=== PATIENT | female | born 1935 | race Caucasian/White ===

== ENCOUNTER 2016-05-29 19:04 | Observation (INO) | payer MEDICARE, BC ==
[~2016-05-29] VITALS: Ht 157.5 cm; Wt 50.0 kg
[2016-05-29 19:19] VITALS: BP 213/114; PULSE 96; RESP 18; TEMP 97.9; O2SAT 100
[2016-05-29] MEDS ORDERED: CARV6.252 PO (19:25)
[2016-05-29] MEDS ORDERED: FURO40TA PO (19:25)
[2016-05-29] MEDS ORDERED: DIGO0.12 PO (19:25)
[2016-05-29] MEDS ORDERED: APIX2.5T PO (19:25)
[2016-05-29] MEDS ORDERED: LISI-519 PO (19:25)
[2016-05-29 19:30] VITALS: RESP 16; O2SAT 100
[2016-05-29 19:49] LABS: AUTOMATED NEUTROPHIL # 5.3 TH/MM3 (1.8-7.7); BASOPHIL % 0.5 % (0.0-2.0); EOSINOPHIL # 0.1 TH/MM3 (0-0.4); EOSINOPHIL % 1.3 % (0.0-4.0); HEMATOCRIT 45.6 % (35.0-46.0); HEMO FLAGS DIFF FINAL; LYMPH % 21.4 % (9.0-44.0); LYMPHOCYTE # 1.6 TH/MM3 (1.0-4.8); MEAN CELL VOLUME 92.3 FL (80.0-100.0); MEAN CORPUSCULAR HEMOGLOBIN 31.3 PG (27.0-34.0); MEAN CORPUSCULAR HGB CONC 33.9 % (32.0-36.0); MONO % 6.7 % (0.0-8.0); NEUT % 70.1 % (16.0-70.0); PLATELET COUNT 118 TH/MM3 (150-450); RED BLOOD COUNT 4.94 MIL/MM3 (4.00-5.30); RED CELL DISTRIBUTION WIDTH 15.4 % (11.6-17.2); WHITE BLOOD COUNT 7.6 TH/MM3 (4.0-11.0)
--- NOTE | 2016-05-29 19:52 | PD ---
HPI Chief Complaint: Chest Pain Time Seen by Provider: 19:18 Travel History International Travel<30 days: No Contact w/Intl Traveler<30days: No Traveled to known affect area: No History of Present Illness HPI Patient is an 81-year-old female who comes in complaining of shortness of breath and some throat discomfort. She says that this morning she woke up and felt some congestion in her throat. She says that while she was organizing some clothing she noticed that she has been feeling very tired today. She says she has to walk up stairs to get to her bedroom and says that this made her feel very winded which is not typical for her. She has not had any pain. She denies any chest pain. She says her granddaughter was diagnosed with strep throat today and she was worried that she might of caught it. She is also concerned about her atrial fibrillation. She has not had any fever or chills. She denies any nausea or vomiting. She has been traveling across the country over the past few months visiting various relatives. [facility] Past Medical History Atrial Fibrillation: Yes Hypertension: Yes Tetanus Vaccination: Unknown Influenza Vaccination: Yes ?: Not Social History Alcohol Use: No Tobacco Use: No Substance Use: No Allergies-Medications (Allergen,Severity, Reaction): Coded Allergies: Codeine (Verified Allergy, Severe, 05/29/16) Darvon (Verified Allergy, Severe, 05/29/16) Reported Meds & Prescriptions Reported Meds & Active Scripts Active Reported Eliquis (Apixaban) 2.5 Mg Tab 2.5 Mg PO BID Carvedilol 6.25 Mg Tab 6.25 Mg PO BID Furosemide 40 Mg Tab 40 Mg PO DAILY Digoxin 0.125 Mg Tab 0.125 Mg PO DAILY Lisinopril 5 Mg Tab 5 Mg PO DAILY Review of Systems Except as stated in HPI: all other systems reviewed are Neg General / Constitutional: No: Fever, Chills HENT: Positive: Congestion, No: Headaches, Lightheadedness Cardiovascular: No: Chest Pain or Discomfort Respiratory: Positive: Shortness of Breath, No: Cough Gastrointestinal: No: Nausea, Vomiting Genitourinary: No: Urgency, Dysuria Skin: No Rash, No Itching Neurologic: Positive: Weakness Physical Exam Narrative GENERAL: Awake and alert, in no acute distress. SKIN: Focused skin assessment warm/dry. HEAD: Atraumatic. Normocephalic. EYES: Pupils equal and round. No scleral icterus. ENT: No nasal bleeding or discharge. Mucous membranes pink and moist. NECK: Trachea midline. No JVD. CARDIOVASCULAR: Tachycardia, irregular rhythm. No murmur appreciated. RESPIRATORY: No accessory muscle use. Clear to auscultation. Breath sounds equal bilaterally. GASTROINTESTINAL: Abdomen soft, non-tender, nondistended. MUSCULOSKELETAL: No obvious deformities. No clubbing. No cyanosis. No edema. No calf tenderness. NEUROLOGICAL: Awake and alert. No obvious cranial nerve deficits. Motor grossly within normal limits. Normal speech. PSYCHIATRIC: Appropriate mood and affect; insight and judgment normal. Data Data Last Documented VS Vital Signs Date Time Temp Pulse Resp B/P Pulse Ox O2 Delivery O2 Flow Rate FiO2 05/29/16 19:30 16 100 Nasal Cannula 2 05/29/16 19:30 100 05/29/16 19:19 97.9 213/114 Orders Complete Blood Count With Diff (05/29/16 19:18) Comprehensive Metabolic Panel (05/29/16 19:18) B-Type Natriuretic Peptide (05/29/16 19:18) Act Partial Throm Time (Ptt) (05/29/16 19:18) Prothrombin Time / Inr (Pt) (05/29/16 19:18) Ckmb (Isoenzyme) Profile (05/29/16 19:18) Troponin I (05/29/16 19:18) Urinalysis - C+S If Indicated (05/29/16 19:18) Ua Includes Microscopic (05/29/16 19:18) Iv Access Insert/Monitor (05/29/16 19:18) Ecg Monitoring (05/29/16 19:18) Oximetry (05/29/16 19:18) Oxygen Administration (05/29/16 19:18) Chest, Pa & Lat (05/29/16 19:18) Ct Pulmonary Angiogram (05/29/16 19:18) Thyroid Stimulating Hormone (05/29/16 19:18) Lisinopril (Prinivil) (05/29/16 20:00) Carvedilol (Coreg) (05/29/16 20:00) Sodium Chlorid 0.9% 500 Ml Inj (Ns 500 M (05/29/16 20:00) Iohexol 350 Inj (Omnipaque 350 Inj) (05/29/16 20:49) Furosemide Inj (Lasix Inj) (05/29/16 21:15) Electrocardiogram (05/29/16 19:16) Admit Order (Ed Use Only) (05/29/16 ) Labs Laboratory Tests Test 05/29/16 05/29/16 19:25 20:20 White Blood Count 7.6 TH/MM3 Red Blood Count 4.94 MIL/MM3 Hemoglobin 15.4 GM/DL Hematocrit 45.6 % Mean Corpuscular Volume 92.3 FL Mean Corpuscular Hemoglobin 31.3 PG Mean Corpuscular Hemoglobin 33.9 % Concent Red Cell Distribution Width 15.4 % Platelet Count 118 TH/MM3 Mean Platelet Volume 12.1 FL Neutrophils (%) (Auto) 70.1 % Lymphocytes (%) (Auto) 21.4 % Monocytes (%) (Auto) 6.7 % Eosinophils (%) (Auto) 1.3 % Basophils (%) (Auto) 0.5 % Neutrophils # (Auto) 5.3 TH/MM3 Lymphocytes # (Auto) 1.6 TH/MM3 Monocytes # (Auto) 0.5 TH/MM3 Eosinophils # (Auto) 0.1 TH/MM3 Basophils # (Auto) 0.0 TH/MM3 CBC Comment DIFF FINAL Differential Comment Prothrombin Time 11.3 SEC Prothromb Time International 1.0 RATIO Ratio Activated Partial 28.6 SEC Thromboplast Time Sodium Level 137 MEQ/L Potassium Level 3.9 MEQ/L Chloride Level 102 MEQ/L Carbon Dioxide Level 25.2 MEQ/L Anion Gap 10 MEQ/L Blood Urea Nitrogen 30 MG/DL Creatinine 1.02 MG/DL Estimat Glomerular Filtration 52 ML/MIN Rate Random Glucose 113 MG/DL Calcium Level 9.3 MG/DL Total Bilirubin 0.9 MG/DL Aspartate Amino Transf 31 U/L (AST/SGOT) Alanine Aminotransferase 27 U/L (ALT/SGPT) Alkaline Phosphatase 125 U/L Total Creatine Kinase 63 U/L Troponin I LESS THAN 0.02 NG/ML B-Type Natriuretic Peptide 461 PG/ML Total Protein 7.6 GM/DL Albumin 3.8 GM/DL Thyroid Stimulating Hormone 3.630 uIU/ML 3rd Gen Urine Color YELLOW Urine Turbidity CLEAR Urine pH 6.5 Urine Specific [place] 1.008 Urine Protein TRACE mg/dL Urine Glucose (UA) NEG mg/dL Urine Ketones TRACE mg/dL Urine Occult Blood NEG Urine Nitrite NEG Urine Bilirubin NEG Urine Urobilinogen LESS THAN 2.0 MG/DL Urine Leukocyte Esterase NEG Urine RBC 1 /hpf Urine WBC 1 /hpf Urine Mucus FEW /lpf Microscopic Urinalysis Comment CULT NOT INDICATED MDM Medical Decision Making Medical Screen Exam Complete: Yes Emergency Medical Condition: Yes Interpretation(s) ECG shows atrial fibrillation with a rate of 102 Differential Diagnosis ACS versus CHF versus PE Narrative Course Patient is an 81-year-old female comes in complaining of shortness of breath and a funny sensation in her neck. Exam shows an irregular heart rate that is tachycardic. ECG shows a rate of 102, she is in atrial fibrillation. IV established, patient connected to the panel monitor, labs sent. Labs significant for a BNP of 416. CTA of the chest is negative for PE. 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 Patient informed of these results. I spoke with Dr. Medina of thoracic surgery who says there is nothing to do at this time , she needs to follow-up with her doctor in 6 months to have it checked. Patient informed of the CT results and advised that she needs to have this followed. Advised of warning signs and to return to the hospital immediately if she experiences any of the symptoms. Patient given Lasix. Placed in observation for management of ACS versus CHF exacerbation. She was given 20 mg of Cardizem by EMS prior to arrival. Her pulse rate has been maintained in the high 90s, low 100s to this has not been repeated. She was given her home medications of lisinopril and carvedilol. Diagnosis Primary Impression: CHF exacerbation Qualified Code: I50.23 - Acute on chronic systolic congestive heart failure Additional Impression: ACS (acute coronary syndrome) Admitting Information Admitting Physician Requests: Observation Condition: Stable Vee Alonso MD May 29, 2016 19:52 Vee Alonso MD May 29, 2016 19:52
[2016-05-29 19:58] LABS: APTT (PATIENT) 28.6 SEC (24.3-30.1); PROTHROMBIN TIME - PATIENT 11.3 SEC (9.8-11.6)
[2016-05-29] MEDS ORDERED: CARVEDILOL 6.25 MG TAB PO ONE (20:00)
[2016-05-29] MEDS ORDERED: LISINOPRIL 5 MG TAB PO ONE (20:00)
[2016-05-29] MEDS ORDERED: SODIUM CHLORID 0.9% 500 ML INJ 500 ML IV ONE (20:00)
[2016-05-29 20:04] LABS: ANION GAP 10 MEQ/L (5-15); AST (GOT) 31 U/L (15-37); BICARBONATE 25.2 MEQ/L (21.0-32.0); BLOOD UREA NITROGEN 30 MG/DL (7-18); CHLORIDE 102 MEQ/L (98-107); GLOMERULAR FILTRATION RATE 52 ML/MIN (>89); POTASSIUM 3.9 MEQ/L (3.5-5.1); SODIUM (NA) 137 MEQ/L (136-145)
[2016-05-29 20:15] LABS: ALKALINE PHOSPHATASE 125 U/L (45-117); ALT (GPT) 27 U/L (10-53); TOTAL BILIRUBIN ADULT 0.9 MG/DL (0.2-1.0)
[2016-05-29 20:17] LABS: CREATINE KINASE 63 U/L (26-192)
--- NOTE | 2016-05-29 20:17 | RADRPT ---
EXAM DATE/TIME: 05/29/2016 19:38 [facility] COMPARISON: No previous studies available for comparison. INDICATIONS : Shortness of breath. MEDICAL HISTORY : None. SURGICAL HISTORY : None. ENCOUNTER: Initial ACUITY: 1 day PAIN SCORE: 0/10 LOCATION: Bilateral chest FINDINGS: The heart is enlarged. Diffuse increased interstitial markings are noted which are nonspecific and e ither represent acute or chronic interstitial disease. Clinical correlation is recommended. No focal alveolar consolidation is noted. CONCLUSION: 1. Cardiomegaly. 2. Diffuse increased interstitial markings bilaterally which either represent acute or chronic inters titial disease. Clinical correlation is recommended. Daryl Lara MD on May 29, 2016 at 19:50 Board Certified Radiologist. This report was verified electronically.
[2016-05-29] MEDS ORDERED: IOHEXOL 350 MG/ML 10 ML VIAL (for RAD DIAG) IV ONE (20:49)
[2016-05-29 20:50] LABS: MUCUS URINE FEW /lpf (OCC)
[2016-05-29 20:51] LABS: BLOOD, URINE NEG (NEG); COMMENT (UR) CULT NOT INDICATED; CULTURE IF INDICATED CULT NOT INDICATED; GLUCOSE,URINE NEG (NEG); KETONE, URINE TRACE mg/dL (NEG); NITRITE,URINE NEG (NEG); PH, URINE 6.5 (5.0-8.5); URINE COLOR YELLOW (YELLW/STRAW)
--- NOTE | 2016-05-29 21:04 | RADRPT ---
EXAM DATE/TIME: 05/29/2016 20:29 [facility] COMPARISON: CHEST PA & LAT, May 29, 2016, 19:38. INDICATIONS : Shortness of breath and general weakness today. IV CONTRAST: 50 cc Omnipaque 350 (iohexol) IV RADIATION DOSE: 4.37 CTDIvol (mGy) MEDICAL HISTORY : Hypertension. SURGICAL HISTORY : None. ENCOUNTER: Initial ACUITY: 1 day PAIN SCALE: 0/10 LOCATION: Bilateral chest TECHNIQUE: Volumetric scanning of the chest was performed using a pulmonary embolism protocol MIP images were re constructed. Using automated exposure control and adjustment of the mA and/or kV according to patien t size, radiation dose was kept as low as reasonably achievable to obtain optimal diagnostic quality images. FINDINGS: PULMONARY ARTERIES: No filling defects are seen in the pulmonary arteries through the segmental level. LUNGS: Chronic increased initial fibrosis is noted bilaterally. There is no consolidation or pneumothorax . No concerning pulmonary nodule is visualized. PLEURAE: There is no pleural thickening or pleural effusion. MEDIASTINUM: There is good visualization of the great vessels of the middle mediastinum. No evidence of mediastin al or hilar adenopathy/mass. There is aneurysmal dilatation of the ascending thoracic aorta measuring 4.0 cm AP by 4.2 cm transverse. The heart is enlarged with significant left atrial enlargement. Les nary artery calcifications are noted. MUSCULOSKELETAL: Within normal limits for patient age. Kyphosis of the thoracic spine is noted. MISCELLANEOUS: The visualized upper abdominal organs demonstrate no acute abnormality. CONCLUSION: 1. No evidence of pulmonary embolism. 2. Cardiomegaly with left atrial enlargement. 3. Coronary artery calcifications. 4. Aneurysmal dilatation of the ascending thoracic aorta measuring 4.0 cm AP by 4.2 cm transverse. 5. 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 6. Kyphosis of the thoracic spine. Daryl Lara MD on May 29, 2016 at 20:56 Board Certified Radiologist. This report was verified electronically.
[2016-05-29] MEDS ORDERED: FUROSEMIDE 20 MG/2 ML VIAL IV PUSH ONE (21:15)
[2016-05-29] MEDS ORDERED: SODIUM CHLORIDE 0.9% FLUSH 10 ML FLUSH IV FLUSH PRN (21:30)
[2016-05-29] MEDS ORDERED: ONDANSETRON HCL 4 MG/2 ML VIAL IVP PRN (21:30)
[2016-05-29] MEDS ORDERED: ACETAMINOPHEN 325 MG TAB PO PRN (21:30)
[2016-05-29] MEDS ORDERED: NITROGLYCERIN 2% OINT 1 GM PACKET TOPICAL PRN (21:30)
[2016-05-29] MEDS ORDERED: MORPHINE SULFATE 4 MG/ML INJ IV PRN (21:30)
[2016-05-29] MEDS ORDERED: BISACODYL 10 MG SUPP PR PRN (21:30)
--- NOTE | 2016-05-29 21:30 | HHI.HP ---
HPI [facility] Primary [facility] Physician Unknown Admission Diagnosis Chest pain, CHF Diagnoses: (1) Generalized weakness Diagnosis: Principal (2) CHF exacerbation Diagnosis: Principal (3) Renal insufficiency Diagnosis: Principal (4) A-fib Diagnosis: Principal (5) Aortic aneurysm Diagnosis: Principal (6) Thrombocytopenia Diagnosis: Principal Travel History International Travel<30 Days: No Contact w/Intl Traveler <30 Da: No Traveled to Known Affected Are: No History of Present Illness This is an 81-year-old female with a PMH of HTN and A. fib on Eliquis who was brought to the ER by EMS secondary to generalized weakness and SOB starting earlier today. Pt lives in [place], however travels quite frequently around the country visiting children/grandchildren. In [facility] for granddaughter's wedding this coming weekend. States granddaughter diagnosed w/ "strep throat" yesterday. Today, pt states she felt "fullness" in her throat. No sore throat , no complaints of chest pain but reports increased fatigue today, and later had episode of SOB after walking up the stairs in granddaughter's house. On arrival, BP 213/114, HR 96, O2 sat 100% on RA, Afebrile. S/p Coreg 6.25mg in ER , repeat BP 164/92, HR 95. CBC essentially unremarkable except for platelets 118, no previous labs for comparison. Creatinine 1.02, no previous labs. BNP 461. INR 1.0. UA negative for UTI. CXR with cardiomegaly, diffuse increased interstitial markings bilaterally. CTA Pulm negative for PE, ascending thoracic artery aneurysm 4.0cm. S/p Lasix 20mg IV in ER w/ good diuresis. Review of Systems Except as stated in HPI: all other systems reviewed are Neg ROS: 14 point review of systems otherwise negative. Past Family Social History Past Medical History PMH: HTN and A. fib on Eliquis Past Surgical History PAST SURGICAL HISTORY: None Allergies: Coded Allergies: Codeine (Verified Allergy, Severe, 05/29/16) Darvon (Verified Allergy, Severe, 05/29/16) Family History PAST FAMILY HISTORY: Reviewed. No h/o DM or CAD Social History PAST SOCIAL HISTORY: Negative for alcohol, tobacco or drugs. Patient visiting from [place]. Physical Exam Vital Signs Vital Signs Date Time Temp Pulse Resp B/P Pulse Ox O2 Delivery O2 Flow Rate FiO2 05/29/16 19:30 16 100 Nasal Cannula 2 05/29/16 19:30 100 Room Air 05/29/16 19:30 100 Nasal Cannula 2 05/29/16 19:19 97.9 96 18 213/114 100 Physical Exam PE: GENERAL: Very pleasant elderly white female in no acute distress. HEENT: PERRLA, EOMI. No scleral icterus or conjunctival pallor. No lid lag or facial droop. No pharyngeal erythema or exudates noted. CARDIOVASCULAR: Regular rate and rhythm. No obvious murmurs to auscultation. No chest tenderness to palpation. RESPIRATORY: No obvious rhonchi or wheezing. Clear to auscultation. Breath sounds equal bilaterally. GASTROINTESTINAL: Abdomen soft, non-tender, nondistended. BS normal. MUSCULOSKELETAL: Extremities without clubbing, cyanosis, or edema. No obvious deformities. NEUROLOGICAL: Awake, alert and oriented x4. No focal neurologic deficits. Moving both upper and lower extremities spontaneously. Laboratory Laboratory Tests Test 05/29/16 05/29/16 19:25 20:20 White Blood Count 7.6 Red Blood Count 4.94 Hemoglobin 15.4 Hematocrit 45.6 Mean Corpuscular Volume 92.3 Mean Corpuscular Hemoglobin 31.3 Mean Corpuscular Hemoglobin 33.9 Concent Red Cell Distribution Width 15.4 Platelet Count 118 Mean Platelet Volume 12.1 Neutrophils (%) (Auto) 70.1 Lymphocytes (%) (Auto) 21.4 Monocytes (%) (Auto) 6.7 Eosinophils (%) (Auto) 1.3 Basophils (%) (Auto) 0.5 Neutrophils # (Auto) 5.3 Lymphocytes # (Auto) 1.6 Monocytes # (Auto) 0.5 Eosinophils # (Auto) 0.1 Basophils # (Auto) 0.0 CBC Comment DIFF FINAL Differential Comment Prothrombin Time 11.3 Prothromb Time International 1.0 Ratio Activated Partial 28.6 Thromboplast Time Sodium Level 137 Potassium Level 3.9 Chloride Level 102 Carbon Dioxide Level 25.2 Anion Gap 10 Blood Urea Nitrogen 30 Creatinine 1.02 Estimat Glomerular Filtration 52 Rate Random Glucose 113 Calcium Level 9.3 Total Bilirubin 0.9 Aspartate Amino Transf 31 (AST/SGOT) Alanine Aminotransferase 27 (ALT/SGPT) Alkaline Phosphatase 125 Total Creatine Kinase 63 Troponin I LESS THAN 0.02 B-Type Natriuretic Peptide 461 Total Protein 7.6 Albumin 3.8 Thyroid Stimulating Hormone 3.630 3rd Gen Urine Color YELLOW Urine Turbidity CLEAR Urine pH 6.5 Urine Specific [place] 1.008 Urine Protein TRACE Urine Glucose (UA) NEG Urine Ketones TRACE Urine Occult Blood NEG Urine Nitrite NEG Urine Bilirubin NEG Urine Urobilinogen LESS THAN 2.0 Urine Leukocyte Esterase NEG Urine RBC 1 Urine WBC 1 Urine Mucus FEW Microscopic Urinalysis Comment CULT NOT INDICATED Result Diagram: 05/29/16192405/29/161924 Assessment and Plan Problem List: (1) Generalized weakness ICD Code: R53.1 Status: Acute (2) CHF exacerbation ICD Code: I50.9 Status: Acute (3) A-fib ICD Code: I48.91 Status: Acute (4) Renal insufficiency ICD Code: N28.9 Status: Acute (5) Thrombocytopenia ICD Code: D69.6 Status: Acute (6) Aortic aneurysm ICD Code: I71.9 Status: Acute Assessment and Plan A/P: 1. Generalized Weakness: +sick contact, granddaughter w/ "strep throat", no pharyngeal erythema/exudates, ? early viral syndrome. IVF for hydration if needed-caution w/ CHF. 2. CHF: EF unknown, no Echo on file. Follows w/ [facility] in [place]. BNP 461 , CXR w/ diffuse interstitial markings bilaterally, CTA Pulm negative for PE, diffuse increased interstitial markings, images reviewed by me. S/p Lasix 20mg IV in ER w/ good diuresis. Resume home Lasix po. 3. A-fib: Chronic. Controlled. Resume home Cardizem and Eliquis. 4. Renal Insufficiency: Creatinine 1.02, no previous labs for comparison. U/ a negative for UTI. Caution w/ IVF in light of CHF. Repeat labs in am. 5. Thrombocytopenia: Platelets 118, no previous labs for comparison. No active bleeding. Repeat labs in am. 6. Aortic Aneurysm: CTA Pulm w/ 4cm ascending aortic aneurysm, no reported history, Dr. Medina consulted by ER physician, recommended repeat imaging in 6 months. Results relayed to patient, states she will follow up w/ [facility] in [place]. 7. DVT Prophylaxis: On Eliquis 8. Social work for d/c planning as needed. 9. Case discussed w/ ER physician at length. Problem Qualifiers (1) CHF exacerbation: Qualified Code: I50.23 - Acute on chronic systolic congestive heart failure Alessandra Schwarz MD May 29, 2016 21:30
[2016-05-29] MEDS: SODIUM CHLOR 0.9% 1000 ML INJ 1,000 ML IV SCH (22:23)
[2016-05-29 22:37] VITALS: BP 164/92; PULSE 95; RESP 16; O2SAT 96
[2016-05-29] MEDS ORDERED: APIXABAN 2.5 MG TABLET PO ONE (23:00)
[2016-05-30 00:49] VITALS: BP 142/89; PULSE 85; RESP 16; O2SAT 96
[2016-05-30 02:09] VITALS: BP 138/94; PULSE 87; RESP 18; TEMP 97.7; O2SAT 95
[2016-05-30 04:22] VITALS: BP 163/83; PULSE 82; RESP 18; TEMP 97.5; O2SAT 97
[2016-05-30] MEDS: SODIUM CHLOR 0.9% 1000 ML INJ 1,000 ML IV SCH (07:28)
[2016-05-30 07:59] VITALS: BP 154/88; PULSE 78; RESP 20; TEMP 97.7; O2SAT 95
[2016-05-30 08:17] LABS: AUTOMATED NEUTROPHIL # 3.5 TH/MM3 (1.8-7.7); BASOPHIL # 0.1 TH/MM3 (0-0.2); BASOPHIL % 1.7 % (0.0-2.0); EOSINOPHIL # 0.1 TH/MM3 (0-0.4); EOSINOPHIL % 1.1 % (0.0-4.0); HEMATOCRIT 46.5 % (35.0-46.0); LYMPH % 23.3 % (9.0-44.0); LYMPHOCYTE # 1.2 TH/MM3 (1.0-4.8); MEAN CELL VOLUME 92.6 FL (80.0-100.0); MEAN CORPUSCULAR HEMOGLOBIN 30.7 PG (27.0-34.0); MEAN CORPUSCULAR HGB CONC 33.1 % (32.0-36.0); MONO % 8.3 % (0.0-8.0); NEUT % 65.6 % (16.0-70.0); PLATELET COUNT 94 TH/MM3 (150-450); RED BLOOD COUNT 5.02 MIL/MM3 (4.00-5.30); RED CELL DISTRIBUTION WIDTH 15.3 % (11.6-17.2); WHITE BLOOD COUNT 5.3 TH/MM3 (4.0-11.0)
[2016-05-30 08:43] LABS: ALT (GPT) 22 U/L (10-53); ANION GAP 9 MEQ/L (5-15); AST (GOT) 23 U/L (15-37); BICARBONATE 26.8 MEQ/L (21.0-32.0); BLOOD UREA NITROGEN 20 MG/DL (7-18); CHLORIDE 105 MEQ/L (98-107); GLOMERULAR FILTRATION RATE 74 ML/MIN (>89); POTASSIUM 3.4 MEQ/L (3.5-5.1); SODIUM (NA) 141 MEQ/L (136-145)
[2016-05-30 08:47] LABS: ALKALINE PHOSPHATASE 102 U/L (45-117); TOTAL BILIRUBIN ADULT 1.5 MG/DL (0.2-1.0)
[2016-05-30 08:58] LABS: HEMO FLAGS AUTO DIFF
[2016-05-30 09:00] LABS: BANDS 1 % (0-6); BASOPHILS 2 % (0-2); EOSINOPHILS 1 % (0-4); NEUTROPHIL # MANUAL DIFF 3.6 TH/MM3 (1.8-7.7); PLATELET ESTIMATE SMEAR LOW (NORMAL); POLYS (SEG NEUTROPHILS) 67 % (16-70); WBC DIFF SAMPLE 100
[2016-05-30] MEDS ORDERED: SODIUM CHLORIDE 0.9% FLUSH 10 ML FLUSH IV FLUSH SCH (09:00)
[2016-05-30] MEDS ORDERED: FUROSEMIDE 40 MG TAB PO SCH (09:00)
[2016-05-30] MEDS ORDERED: DIGOXIN 0.125 MG TAB PO SCH (09:00)
[2016-05-30] MEDS ORDERED: APIXABAN 2.5 MG TABLET PO SCH ×2 (09:00)
[2016-05-30] MEDS ORDERED: CARVEDILOL 6.25 MG TAB PO SCH (09:00)
[2016-05-30 09:02] LABS: PLATELET MORPHOLOGY NORMAL (NORMAL); SCAN/DIFF FINAL DIFF MANUAL
[2016-05-30 09:40] VITALS: PULSE 79
[2016-05-30] MEDS ORDERED: SODIUM CHLORIDE 0.65% NASAL SPRAY 45 ML BTL EACH NARE PRN (10:30)
[2016-05-30] MEDS ORDERED: SODIUM CHLORIDE 0.65% NASAL SPRAY 45 ML BTL EACH NARE ONE (11:00)
[2016-05-30 11:34] VITALS: BP 145/65; PULSE 66; RESP 20; TEMP 97.7; O2SAT 94
--- NOTE | 2016-05-30 11:46 | HHI.PR ---
Subjective Remarks Follow-up for difficulty breathing. The patient is seen with her granddaughter at bedside. The patient was having sinus and throat congestion yesterday that was causing her to have difficulty breathing. She denies any problems breathing in her lungs. Specifically she denies any shortness of breath, chest pain, or wheezing. She states that she was previously on several allergy medications, but had stopped taking them. She's been having dry congested sinuses with scant bleeding when she blows her nose. She has been taking Lasix 40 mg every other day and 20 mg every other day. She denies any leg swelling. She feels well at this time. She states showed a normal BM. She's been ambulating without assistance. She would like to go home with her granddaughter and rest. Objective Vitals Vital Signs Date Time Temp Pulse Resp B/P Pulse Ox O2 Delivery O2 Flow Rate FiO2 05/30/16 11:34 97.7 66 20 145/65 94 05/30/16 09:40 79 05/30/16 07:59 97.7 78 20 154/88 95 05/30/16 04:22 97.5 82 18 163/83 97 05/30/16 02:09 97.7 87 18 138/94 95 05/30/16 00:49 85 16 142/89 96 Room Air 05/29/16 22:37 95 16 164/92 96 Room Air 05/29/16 19:30 16 100 Nasal Cannula 2 05/29/16 19:30 100 Room Air 05/29/16 19:30 100 Nasal Cannula 2 05/29/16 19:19 97.9 96 18 213/114 100 I/O 05/29/16 05/29/16 05/29/16 05/30/16 05/30/16 05/30/16 07:00 15:00 23:00 07:00 15:00 23:00 Intake Total 500 ml Output Total 800 ml Balance -800 ml 500 ml Intake Oral 400 ml IV Total 100 ml Output Urine Total 800 ml # Voids 3 1 2 Result Diagram: 05/30/16 0705 05/30/16 0750 Imaging Last Impressions Chest X-Ray 05/29/16 1918 Signed Impressions: Service Date/Time: Sunday, May 29, 2016 19:38 - CONCLUSION: 1. Cardiomegaly. 2. Diffuse increased interstitial markings bilaterally which either represent acute or chronic interstitial disease. Clinical correlation is recommended. Daryl Lara MD CT Angiography 05/29/161917 Signed Impressions: Service Date/Time: Sunday, May 29, 2016 20:29 - CONCLUSION: 1. No evidence of pulmonary embolism. 2. Cardiomegaly with left atrial enlargement. 3. Coronary artery calcifications. 4. Aneurysmal dilatation of the ascending thoracic aorta measuring 4.0 cm AP by 4.2 cm transverse. 5. Diffuse increased interstitial markings consistent with probable chronic interstitial fibrotic disease. 6. Kyphosis of the thoracic spine. Daryl Lara MD Objective Remarks GENERAL: Well-developed well-nourished. In no acute distress. SKIN: Warm and dry. No lesions noted. HEENT: Normocephalic. Pupils equal and round. Mucous membranes pink and moist. CARDIOVASCULAR: Regular rate and rhythm. No murmur appreciated. RESPIRATORY: No accessory muscle use. Clear to auscultation. Breath sounds equal bilaterally. GASTROINTESTINAL: Abdomen soft, non-tender, nondistended. Bowel sounds x4. MUSCULOSKELETAL: No obvious deformities. No clubbing or cyanosis. No edema. NEUROLOGICAL: Awake and alert. No focal neurological deficits. Moves upper and lower extremities spontaneously. Normal speech. PSYCHIATRIC: Appropriate mood and affect; insight and judgment normal. A/P Problem List: (1) Generalized weakness ICD Code: R53.1 Status: Acute (2) A-fib ICD Code: I48.91 Status: Chronic (3) Renal insufficiency ICD Code: N28.9 Status: Acute (4) Thrombocytopenia ICD Code: D69.6 Status: Acute (5) Aortic aneurysm ICD Code: I71.9 Status: Acute Assessment and Plan 81-year-old female with a PMH of HTN and A. fib on Eliquis who presented with generalized weakness and difficulty breathing Generalized Weakness: Suspect secondary to dehydration and difficulty breathing from allergies/pulmonary fibrosis. Improved with IVF. Ambulating without assistance. Comfortable on room air. Dehydration with mild SARAH: Creatinine 1.02, improved to 0.75 with IVF. Takes Lasix for lower extremity swelling, no swelling currently. Decrease Lasix from 40 mg to 20 mg. A-fib: Chronic. Controlled. Continue home Cardizem, digoxin, and Eliquis. Sinus and throat congestion: Possibly secondary to allergies and GERD. Start Zyrtec, Zantac, and saline nasal spray. Pulmonary fibrosis: Remote history of tobacco use from age [age]. Diffuse increased interstitial markings consistent with probable chronic need additional fibrotic disease seen on chest CT. Patient stable and with no respiratory complaints at this time. Recommended follow-up with pulmonology as outpatient. Thrombocytopenia: Platelets 118, 94. No previous labs for comparison. No active bleeding. Hemoglobin stable at 15.4. Aortic Aneurysm: CTA Pulm w/ 4cm ascending aortic aneurysm, no reported history , Dr. Medina consulted by ER physician, recommended repeat imaging in 6 months. Results discussed with the patient, who plans to follow up w/ System Support Administrator and PCP in [place]. DVT Prophylaxis: On Eliquis Written by Alexey Robb, acting as scribe for Dr. Whiting on 05/30/16 at 11:46. All or portions of this note were transcribed by kiki MATA. I, Dr. Mona Whiting personally performed the history, physical exam, and medical decision making; and confirmed the accuracy of the information in the transcribed note. Authenticated by Dr. Mona Whiting on 05/30/16 at 11:46. 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
[2016-05-30] MEDS ORDERED: FURO20TA PO (11:48)
[2016-05-30] MEDS ORDERED: OCEA0.653 EACH NARE (11:48)
[2016-05-30] MEDS ORDERED: CETI10 PO (11:48)
[2016-05-30] MEDS ORDERED: FAMO20TA2 PO (11:48)
[2016-05-30] MEDS ORDERED: CETIRIZINE HCL 10 MG TAB PO SCH (21:00)
[2016-05-30] MEDS ORDERED: FAMOTIDINE 20 MG TAB PO SCH (21:00)
--- NOTE | 2016-05-31 07:24 | EKG ---
Date Performed: 05/29/2016 Time Performed: 19:16:13 PTAGE: 81 years EKG: ATRIAL FIBRILLATION WITH RAPID VENTRICULAR RESPONSE NONSPECIFIC ST & T-WAVE ABNORMALITY PRO BABLE LEFT VENTRICLE HYPERTOPHY ABNORMAL ECG NO PREVIOUS TRACING DOCTOR: Laura Loco Interpretating Date/Time 05/31/2016 07:23:49
== END 2016-05-30 12:29 | disposition home or self-care (01) ==
LOC: NEPE 19:04 → NEDA 21:25 → NEPHCDU 05-30 01:37
PROVIDERS: ADMIT Hospitalist; ATTEND Hospitalist
DX: R53.1 Weakness (principal); I11.0 Hypertensive heart disease with heart failure; I50.23 Acute on chronic systolic (congestive) heart failure; N17.9 Acute kidney failure, unspecified; E86.0 Dehydration; I48.2 Chronic atrial fibrillation; J84.10 Pulmonary fibrosis, unspecified; I24.9 Acute ischemic heart disease, unspecified; D69.6 Thrombocytopenia, unspecified; I71.9 Aortic aneurysm of unspecified site, without rupture
CPT/HCPCS: 71020; 71275; 80053; 81001; 82550; 83880; 84443; 84484; 85007; 85025; 85027; 85610; 85730; 93005; 96360; 99285; G0378; J1940; J7030; J7040; Q9967